=== PATIENT | male | born 1950 | race Caucasian/White ===

== ENCOUNTER 2018-01-02 09:52 | Emergency (ER) | payer OTHER ==
[~2018-01-02] VITALS: Ht 170.2 cm; Wt 99.8 kg
[~2018-01-02 09:52] MED LIST: ACET120S PR; ACET325 PT; ALBU3IS INH; ALBU90OI6; ALMASICH; ALUMAG30SU; ALUMAG30SU PT; ASPI81CH PEG; ASPI81CH PO; ASPI81CH PT; ASPI81EC PO; ATOR80 PT; BACL10 PO; BACL10 PT; CEPH500 PO; CEPH500 PT; CHOL10002 PT; CIPR500 PO; CLOP75 PO; CLOP75 PT; CVS DISPOSABLE399 ML PR; Colace100 MG PO; Crestor 20 mg tablet; Crestor20 MG PT; DOC100SO PT; DOCU100 PO; DOCU100 PT; Docusate S50 MG/5 ML PT; Doxycycline Hyc50 MG PO; FERR325 PO; Florastor250 MG PO; GAVILAX17 GM PT; GLYCAS PR; GLYCERIN1 EACH PR; Invanz1 GM IV; LACT10SY PT; LAVAP17G PO; LAVAP17G PT; LEVFLO500 PO; LEVSOD50 PO; LEVSOD75 PO; LISI5 PO; LISI5 PT; Loratadine10 MG PT; MEFOXIN IV; MEROPENEM1000 MG IV; MINE10T; MINE10T BOTHEARS; MIRALAX17 GM PT; MODA200; MODA200 PO; MODA200 PT; MULVITMIND PO; MULVITMIND PT; Macrodantin50 MG PO; Merrem1000 MG IV; Milk Of Ma400 MG/5 M PT; Miralax17 GM; Mucinex1200 MG PT; N-ACETYL-L-CYS600 MG PO; N-ACETYL-L-CYS600 MG PT; NAC600 MG PEG; NAC600 MG PT; NITR100 PT; NITR100CA PO; NITR100CA PT; NORT25; NORT25 PT; OMEG1CAP30; OMEP20ER PO; RENACIDIN IRRIG30 ML IR; ROSU10TA PO; ROSU10TA PT; SERT100 PO; SERT100 PT; SERT20L; SERTRALINE 20 MG/ML; SULTRIDS; SULTRIEL PT; Synthroid25 MCG PT; THERA M PLUS T1 EACH PO; Tylenol Su160 MG/5 M PT; Tylenol325 MG PT; VENL75ER PO; Ventolin Soln3 ML INH; ZOLOFT PT; [UNRECOGNIZED DRUG - OTHER] BOTHEARS; [UNRECOGNIZED DRUG - OTHER] PO; [UNRECOGNIZED DRUG - OTHER] TOP
[2018-01-02] MEDS ORDERED: NITR100CA PT (12:00)
[2018-09-28] MEDS ORDERED: ERTAPENEM1 GM IV (14:37)
== END 2018-01-02 12:42 | disposition home or self-care (01) ==
LOC: ER 09:52
DX: K59.00 Constipation, unspecified (principal); I10 Essential (primary) hypertension; I48.91 Unspecified atrial fibrillation; K21.9 Gastro-esophageal reflux disease without esophagitis; F32.9 Major depressive disorder, single episode, unspecified; E78.5 Hyperlipidemia, unspecified; G35 Multiple sclerosis; Z88.5 Allergy status to narcotic agent; Z79.82 Long term (current) use of aspirin; Z79.899 Other long term (current) drug therapy
CPT/HCPCS: 36415; 74018; 93005; 93010; 99283

== ENCOUNTER 2018-03-26 11:20 | Emergency (ER) | payer OTHER, MEDICARE ==
[~2018-03-26] VITALS: Ht 170.2 cm; Wt 99.8 kg
[~2018-03-26 11:20] MED LIST changes: +CHOL10002 PO; -CHOL10002 PT; +Crestor20 MG PO; -Crestor20 MG PT; +Docusate S50 MG/5 ML PO; -Docusate S50 MG/5 ML PT; +LACT10SY PO; -LACT10SY PT; -LEVSOD75 PO; +Loratadine10 MG PO; -Loratadine10 MG PT; +MIRALAX17 GM PO; -MIRALAX17 GM PT; +Mucinex1200 MG PO; -Mucinex1200 MG PT; +NORT25 PO
[2018-03-26 12:06] LABS: BASOPHILS ABSOLUTE AUTO 0.05 K/mm3 (0.00-0.23); BASOPHILS PERCENT AUTO 0 % (0-2); EOSINOPHILS PERCENT AUTO 1 % (0-6); Hematocrit 42.9 % (37.0-53.0); Hemoglobin 14.2 g/dL (13.5-17.5); IMMATURE GRAN ABSOLUTE AUTO 0.06 K/mm3 (0.00-0.10); IMMATURE GRAN PERCENT AUTO 0 % (0-1); LYMPHOCYTES ABSOLUTE AUTO 1.26 K/mm3 (0.84-5.20); LYMPHOCYTES PERCENT AUTO 8 % (21-46); MONOCYTES ABSOLUTE AUTO 1.17 K/mm3 (0.16-1.47); MONOCYTES PERCENT AUTO 8 % (4-13); Mean Corpuscular HGB 28.5 pg (26.0-34.0); Mean Corpuscular HGB Conc 33.1 g/dL (31.5-36.5); Mean Corpuscular Volume 86 fL (80-100); Mean Platelet Volume 11.1 fL (9.1-12.4); NEUTROPHILS ABSOLUTE AUTO 12.94 K/mm3 (1.96-9.15); NEUTROPHILS PERCENT AUTO 83 % (41-73); Platelet Count 235 K/mm3 (150-400); RDW Coefficient Variation 13.7 % (11.7-14.2); RDW Standard Deviation 43.2 fL (35.1-46.3); Red Blood Cell Count 4.99 M/mm3 (4.30-5.90); White Blood Cell Count 15.58 K/mm3 (4.00-11.30)
[2018-03-26 12:15] LABS: Alanine Aminotransfer (ALT/SGP 44 U/L (12-78); Albumin, Blood 3.6 g/dL (3.4-5.0); Alk Phos 69 U/L (50-136); Anion Gap 6 mmol/L (6-16); Aspartate Aminotrans (AST/SGOT 29 U/L (12-37); Bilirubin, Total 0.4 mg/dL (0.1-1.0); Blood Urea Nitrogen 12 mg/dL (8-24); Bun/Creatinine Ratio 15.4 (12.0-20.0); CO2, Blood 25 mmol/L (21-32); Calcium, Blood 8.6 mg/dL (8.5-10.1); Chloride, Blood 106 mmol/L (98-108); Creatinine, Blood 0.78 mg/dL (0.60-1.20); Globulin, Blood 3.6 g/dL (2.2-4.0); Glomerular Filtration Rate >60 (60-); Glucose, Blood 106 mg/dL (70-99); Potassium, Blood 4.5 mmol/L (3.5-5.5); Sodium, Blood 137 mmol/L (136-145); Total Protein, Blood 7.2 g/dL (6.4-8.2)
[2018-03-26 12:55] LABS: Source, Urine Catheter
[2018-03-26 13:36] LABS: Appearance, Urine Clear (Clear); Bilirubin, Urine Neg (Neg); Blood, Urine Neg (Neg); Color, Urine Yellow (P-Yellow); Glucose Qualitative, Urine Neg (Neg); Ketones, Urine Neg (Neg); Leukocyte Esterase, Urine 1+ (Neg); Nitrite, Urine Neg (Neg); Protein, Urine Neg (Neg); Specific Gravity, Urine 1.005 (1.003-1.022); Urobilinogen, Urine NORM (Normal); pH, Urine 6.5 (5.0-8.0)
[2018-03-26 14:17] LABS: Bacteria Many /hpf; Red Blood Cells, Urine 0-2 /hpf (0-2); Squamous Epithelial Cells Rare /hpf (Few)
[2018-03-26] MEDS ORDERED: Bactrim Ds Tab1 EACH PO (15:04)
[2018-03-26] MEDS ORDERED: CEFP200 PO (15:08)
== END 2018-03-26 16:32 | disposition home or self-care (01) ==
LOC: ER 11:20
PROVIDERS: Emergency Medicine
DX: N39.0 Urinary tract infection, site not specified (principal); E78.5 Hyperlipidemia, unspecified; F32.9 Major depressive disorder, single episode, unspecified; I10 Essential (primary) hypertension; I48.91 Unspecified atrial fibrillation; K21.9 Gastro-esophageal reflux disease without esophagitis; Z88.5 Allergy status to narcotic agent; Z79.899 Other long term (current) drug therapy; Z79.82 Long term (current) use of aspirin
CPT/HCPCS: 36415; 71045; 80053; 81001; 85025; 87077; 87086; 87186; 93005; 93010; 96365; 99283; J0295; J7030

== ENCOUNTER → 2018-05-09 | Outpatient (CLI) | payer SELFPAY ==
[~2018-05-09] MED LIST changes: +Bactrim Ds Tab1 EACH PO; +CEFP200 PO
[2018-05-09 12:14] LABS: Source, Urine Catheter
[2018-05-09 12:22] LABS: Appearance, Urine Hazy (Clear); Bilirubin, Urine Neg (Neg); Blood, Urine 5+ (Neg); Color, Urine Yellow (P-Yellow); Glucose Qualitative, Urine 3+ (Neg); Ketones, Urine Neg (Neg); Leukocyte Esterase, Urine 2+ (Neg); Nitrite, Urine Neg (Neg); Protein, Urine 3+ (Neg); Urobilinogen, Urine NORM (Normal)
[2018-05-09 12:41] LABS: Red Blood Cells, Urine TNTC /hpf (0-2); White Blood Cells, Urine TNTC /hpf (0-5)
[2018-05-09 12:42] LABS: Bacteria Few /hpf; Squamous Epithelial Cells Not Seen /hpf (Few)
== END | disposition home or self-care (01) ==
LOC: EDSTATUS 09:07 → LAB RH 12:13
DX: N39.0 Urinary tract infection, site not specified (principal)
CPT/HCPCS: 81001; 87077; 87086; 87186

== ENCOUNTER → 2018-07-19 | Outpatient (CLI) | payer SELFPAY | END | disposition home or self-care (01) | LOC: PLD 13:36 → LAB SHORT 13:36 | DX: D48.5 Neoplasm of uncertain behavior of skin (principal) | CPT/HCPCS: 88305 ==

== ENCOUNTER 2018-12-24 19:45 | Emergency (ER) | payer MEDICARE ==
[~2018-12-24] VITALS: Ht 170.2 cm; Wt 102.1 kg
[~2018-12-24 19:45] MED LIST changes: -CHOL10002 PO; +CHOL10002 PT; -Crestor20 MG PO; +Crestor20 MG PT; -Docusate S50 MG/5 ML PO; +Docusate S50 MG/5 ML PT; +ERTAPENEM1 GM IV; -LACT10SY PO; +LACT10SY PT; +LEVSOD75 PO; -Loratadine10 MG PO; +Loratadine10 MG PT; -MIRALAX17 GM PO; +MIRALAX17 GM PT; -Mucinex1200 MG PO; +Mucinex1200 MG PT; -NORT25 PO
[2018-12-24] MEDS ORDERED: CHOL10002 PT (19:53)
== END 2018-12-25 00:20 | disposition home or self-care (01) ==
LOC: ER 19:45
DX: Z46.59 Encounter for fitting and adjustment of other gastrointestinal appliance and device (principal); Z88.8 Allergy status to other drugs, medicaments and biological substances; Z91.018 Allergy to other foods; Z79.899 Other long term (current) drug therapy; Z79.82 Long term (current) use of aspirin; E78.5 Hyperlipidemia, unspecified; F32.9 Major depressive disorder, single episode, unspecified; I10 Essential (primary) hypertension; K21.9 Gastro-esophageal reflux disease without esophagitis; I48.91 Unspecified atrial fibrillation
CPT/HCPCS: 99282

== ENCOUNTER 2019-01-23 09:31 | Emergency (ER) | payer SELFPAY ==
[~2019-01-23] VITALS: Ht 172.7 cm; Wt 111.1 kg
[2019-01-23 09:55] LABS: Source, Urine Catheter
[2019-01-23 09:57] LABS: Bilirubin, Urine Neg (Neg); Blood, Urine 5+ (Neg); Glucose Qualitative, Urine Neg (Neg); Ketones, Urine 1+ (Neg); Leukocyte Esterase, Urine 3+ (Neg); Nitrite, Urine Pos (Neg); Protein, Urine 3+ (Neg); Specific Gravity, Urine 1.025 (1.003-1.022); Urobilinogen, Urine NORM (Normal)
[2019-01-23 10:04] LABS: BASOPHILS ABSOLUTE AUTO 0.01 K/mm3 (0.00-0.23); BASOPHILS PERCENT AUTO 0 % (0-2); EOSINOPHILS ABSOLUTE AUTO 0.01 K/mm3 (0.00-0.68); EOSINOPHILS PERCENT AUTO 0 % (0-6); Hematocrit 41.9 % (37.0-53.0); Hemoglobin 13.4 g/dL (13.5-17.5); IMMATURE GRAN ABSOLUTE AUTO 0.03 K/mm3 (0.00-0.10); IMMATURE GRAN PERCENT AUTO 0 % (0-1); LYMPHOCYTES ABSOLUTE AUTO 0.84 K/mm3 (0.84-5.20); LYMPHOCYTES PERCENT AUTO 10 % (21-46); MONOCYTES ABSOLUTE AUTO 0.76 K/mm3 (0.16-1.47); MONOCYTES PERCENT AUTO 9 % (4-13); Mean Corpuscular HGB 25.7 pg (26.0-34.0); Mean Corpuscular Volume 80 fL (80-100); Mean Platelet Volume 11.3 fL (9.1-12.4); NEUTROPHILS ABSOLUTE AUTO 6.84 K/mm3 (1.96-9.15); NEUTROPHILS PERCENT AUTO 81 % (41-73); Platelet Count 166 K/mm3 (150-400); RDW Coefficient Variation 16.9 % (11.7-14.2); Red Blood Cell Count 5.22 M/mm3 (4.30-5.90); White Blood Cell Count 8.49 K/mm3 (4.00-11.30)
[2019-01-23 10:06] LABS: Appearance, Urine Hazy (Clear); Bacteria Few /hpf; Color, Urine Yellow (P-Yellow); Red Blood Cells, Urine 25-50 /hpf (0-2); Squamous Epithelial Cells Few /hpf (Few); White Blood Cells, Urine 50-100 /hpf (0-5)
[2019-01-23 10:28] LABS: Alanine Aminotransfer (ALT/SGP 35 U/L (12-78); Albumin, Blood 3.6 g/dL (3.4-5.0); Alk Phos 58 U/L (50-136); Anion Gap 9 mmol/L (6-16); Aspartate Aminotrans (AST/SGOT 20 U/L (12-37); Bilirubin, Total 0.5 mg/dL (0.1-1.0); Blood Urea Nitrogen 16 mg/dL (8-24); Bun/Creatinine Ratio 20.7 (12.0-20.0); CO2, Blood 22 mmol/L (21-32); Calcium, Blood 8.3 mg/dL (8.5-10.1); Chloride, Blood 103 mmol/L (98-108); Creatinine, Blood 0.77 mg/dL (0.60-1.20); Globulin, Blood 3.7 g/dL (2.2-4.0); Glomerular Filtration Rate >60 (60-); Glucose, Blood 137 mg/dL (70-99); Sodium, Blood 134 mmol/L (136-145); Total Protein, Blood 7.3 g/dL (6.4-8.2)
[2019-01-23] MEDS ORDERED: LEVFLO500 PT (11:18)
== END 2019-01-23 12:33 | disposition home or self-care (01) ==
LOC: ER 09:31
PROVIDERS: Emergency Medicine
DX: N39.0 Urinary tract infection, site not specified (principal); E78.5 Hyperlipidemia, unspecified; F32.9 Major depressive disorder, single episode, unspecified; I10 Essential (primary) hypertension; I48.91 Unspecified atrial fibrillation; K21.9 Gastro-esophageal reflux disease without esophagitis; Z91.018 Allergy to other foods; Z88.5 Allergy status to narcotic agent; Z88.8 Allergy status to other drugs, medicaments and biological substances; Z79.899 Other long term (current) drug therapy; Z79.82 Long term (current) use of aspirin
CPT/HCPCS: 36415; 71046; 80053; 81001; 83605; 85025; 87086; 93005; 93010; 96361; 96365; 99284-25; J1956; J7120

== ENCOUNTER → 2019-06-26 | Outpatient (CLI) | payer SELFPAY ==
[~2019-06-26] MED LIST changes: +LEVFLO500 PT
[2019-06-26 12:06] LABS: Hematocrit 44.9 % (37.0-53.0); Hemoglobin 14.1 g/dL (13.5-17.5); Mean Corpuscular HGB 26.6 pg (26.0-34.0); Mean Corpuscular HGB Conc 31.4 g/dL (31.5-36.5); Mean Corpuscular Volume 85 fL (80-100); Mean Platelet Volume 11.3 fL (9.1-12.4); Platelet Count 249 K/mm3 (150-400); RDW Coefficient Variation 15.9 % (11.7-14.2); RDW Standard Deviation 48.8 fL (35.1-46.3); Red Blood Cell Count 5.31 M/mm3 (4.30-5.90); White Blood Cell Count 16.14 K/mm3 (4.00-11.30)
[2019-06-26 12:07] LABS: Bilirubin, Urine Neg (Neg); Blood, Urine 5+ (Neg); Glucose Qualitative, Urine Neg (Neg); Ketones, Urine 1+ (Neg); Leukocyte Esterase, Urine 3+ (Neg); Nitrite, Urine Pos (Neg); Protein, Urine 3+ (Neg); Specific Gravity, Urine 1.015 (1.003-1.022); Urobilinogen, Urine NORM (Normal); pH, Urine 6.5 (5.0-8.0)
[2019-06-26 12:14] LABS: Appearance, Urine Hazy (Clear); Color, Urine Yellow (P-Yellow)
[2019-06-26 12:16] LABS: Red Blood Cells, Urine TNTC /hpf (0-2); Transitional Epithelial Cells Few /hpf (0-Rare); White Blood Cells, Urine 50-100 /hpf (0-5)
[2019-06-26 12:17] LABS: Bacteria Few /hpf; Squamous Epithelial Cells Few /hpf (Few)
[2019-06-26 12:24] LABS: Alanine Aminotransfer (ALT/SGP 39 U/L (12-78); Albumin, Blood 3.9 g/dL (3.4-5.0); Albumin/Globulin Ratio 1.1 (0.8-1.8); Alk Phos 68 U/L (50-136); Anion Gap 4 mmol/L (6-16); Aspartate Aminotrans (AST/SGOT 21 U/L (12-37); Bilirubin, Total 0.5 mg/dL (0.1-1.0); Blood Urea Nitrogen 14 mg/dL (8-24); CO2, Blood 29 mmol/L (21-32); Calcium, Blood 9.3 mg/dL (8.5-10.1); Chloride, Blood 102 mmol/L (98-108); Creatinine, Blood 0.88 mg/dL (0.60-1.20); Globulin, Blood 3.7 g/dL (2.2-4.0); Glomerular Filtration Rate >60 (60-); Glucose, Blood 142 mg/dL (70-99); Potassium, Blood 4.3 mmol/L (3.5-5.5); Sodium, Blood 135 mmol/L (136-145); Total Protein, Blood 7.6 g/dL (6.4-8.2)
== END | disposition home or self-care (01) ==
LOC: EDSTATUS 11:46 → LAB RH 11:55
DX: N39.0 Urinary tract infection, site not specified (principal); I10 Essential (primary) hypertension
CPT/HCPCS: 80053; 81001; 85027; 87077; 87086; 87186

== ENCOUNTER → 2019-07-14 | Outpatient (CLI) | payer SELFPAY ==
[2019-07-14 16:55] LABS: Bilirubin, Urine Neg (Neg); Blood, Urine 5+ (Neg); Glucose Qualitative, Urine Neg (Neg); Ketones, Urine Neg (Neg); Leukocyte Esterase, Urine 2+ (Neg); Nitrite, Urine Neg (Neg); Protein, Urine 3+ (Neg); Urobilinogen, Urine 1+ (Normal)
[2019-07-14 17:01] LABS: Appearance, Urine Cloudy (Clear); Color, Urine Red (P-Yellow)
[2019-07-14 17:04] LABS: Amorphous Mod (0-Heavy); Bacteria Mod /hpf; Red Blood Cells, Urine TNTC /hpf (0-2); Squamous Epithelial Cells Rare /hpf (Few)
== END | disposition home or self-care (01) ==
LOC: EDSTATUS 13:38 → LAB RH 16:05
DX: N39.0 Urinary tract infection, site not specified (principal)
CPT/HCPCS: 81001; 87077; 87086; 87186

== ENCOUNTER 2019-10-04 05:35 | Emergency (ER) | payer OTHER ==
[~2019-10-04] VITALS: Ht 170.2 cm; Wt 102.1 kg
[~2019-10-04 05:35] MED LIST changes: +Keflex500 MG PO; +METF500 PO; +VITAMIN D33000 UNI1 PO
[2019-10-25] MEDS ORDERED: MILK OF MA400 MG/5 M PO (13:41)
[2019-10-25] MEDS ORDERED: CLOBET30L TOP (13:41)
[2019-10-25] MEDS ORDERED: ROSU10TA PO (13:42)
[2019-10-25] MEDS ORDERED: RENACIDIN IRRIG30 ML IR (13:42)
== END 2019-10-04 11:02 | disposition home or self-care (01) ==
LOC: ER 05:35
DX: K94.23 Gastrostomy malfunction (principal); I10 Essential (primary) hypertension; E78.5 Hyperlipidemia, unspecified; K21.9 Gastro-esophageal reflux disease without esophagitis; I48.91 Unspecified atrial fibrillation; F32.9 Major depressive disorder, single episode, unspecified; G35 Multiple sclerosis; Z91.018 Allergy to other foods; Z88.5 Allergy status to narcotic agent; Z79.899 Other long term (current) drug therapy; Z79.82 Long term (current) use of aspirin; Z79.84 Long term (current) use of oral hypoglycemic drugs
CPT/HCPCS: 43761; 49465; 99283-25; Q9963

== ENCOUNTER → 2020-01-16 | Outpatient (CLI) | payer SELFPAY ==
[~2020-01-16] MED LIST changes: +CLOBET30L TOP; +MILK OF MA400 MG/5 M PO
== END | disposition home or self-care (01) ==
LOC: LAB RH 08:02 → EDSTATUS 14:01
DX: E11.9 Type 2 diabetes mellitus without complications (principal)
CPT/HCPCS: 36415; 83036

== ENCOUNTER 2021-03-15 04:17 | Inpatient (IN) | payer OTHER, MEDICARE ==
[~2021-03-15] VITALS: Ht 172.7 cm; Wt 94.0 kg
[~2021-03-15 04:17] MED LIST changes: +ATOR40TA PO; +LINZESS145 MCG PO
[2021-03-15 04:40] LABS: PCO2 Arterial 35.9 mmHg (35-45); PO2 Arterial 126 mmHg (80-100); pH Blood Arterial 7.42 (7.35-7.45)
[2021-03-15 04:45] LABS: Calcium, Ionized (POC) 1.16 mmol/L (1.10-1.46); Chloride (POC) 103 mmol/L (98-108); Glucose (ISTAT POC) 158 mg/dL (70-99); Hemoglobin (POC) 16.7 g/dL (13.5-17.5); Potassium (POC) 4.9 mmol/L (3.5-5.5); Sodium (POC) 138 mmol/L (135-148); Total CO2 (POC) 25 mmol/L (21-32)
[2021-03-15 04:53] LABS: BASOPHILS ABSOLUTE AUTO 0.06 K/mm3 (0.00-0.23); BASOPHILS PERCENT AUTO 0 % (0-2); EOSINOPHILS ABSOLUTE AUTO 0.02 K/mm3 (0.00-0.68); EOSINOPHILS PERCENT AUTO 0 % (0-6); Hematocrit 49.2 % (37.0-53.0); Hemoglobin 16.6 g/dL (13.5-17.5); IMMATURE GRAN ABSOLUTE AUTO 0.03 K/mm3 (0.00-0.10); IMMATURE GRAN PERCENT AUTO 0 % (0-1); LYMPHOCYTES ABSOLUTE AUTO 1.25 K/mm3 (0.84-5.20); LYMPHOCYTES PERCENT AUTO 8 % (21-46); MONOCYTES ABSOLUTE AUTO 1.14 K/mm3 (0.16-1.47); MONOCYTES PERCENT AUTO 8 % (4-13); Mean Corpuscular HGB 29.8 pg (26.0-34.0); Mean Corpuscular HGB Conc 33.7 g/dL (31.5-36.5); Mean Corpuscular Volume 88 fL (80-100); Mean Platelet Volume 10.9 fL (9.1-12.4); NEUTROPHILS ABSOLUTE AUTO 12.57 K/mm3 (1.96-9.15); NEUTROPHILS PERCENT AUTO 83 % (41-73); Platelet Count 299 K/mm3 (150-400); RDW Coefficient Variation 13.3 % (11.7-14.2); RDW Standard Deviation 43.4 fL (35.1-46.3); Red Blood Cell Count 5.57 M/mm3 (4.30-5.90); White Blood Cell Count 15.07 K/mm3 (4.00-11.30)
[2021-03-15 05:13] LABS: Alanine Aminotransfer (ALT/SGP 39 U/L (12-78); Albumin, Blood 3.9 g/dL (3.4-5.0); Albumin/Globulin Ratio 1.1 (0.8-1.8); Alk Phos 77 U/L (50-136); Anion Gap 8 mmol/L (6-16); Aspartate Aminotrans (AST/SGOT 20 U/L (12-37); Blood Urea Nitrogen 19 mg/dL (8-24); Bun/Creatinine Ratio 18.1 (12.0-20.0); CO2, Blood 23 mmol/L (21-32); Calcium, Blood 9.3 mg/dL (8.5-10.1); Chloride, Blood 104 mmol/L (98-108); Creatinine, Blood 1.05 mg/dL (0.60-1.20); Globulin, Blood 3.4 g/dL (2.2-4.0); Glomerular Filtration Rate >60 (60-); Glucose, Blood 150 mg/dL (70-99); Potassium, Blood 4.8 mmol/L (3.5-5.5); Sodium, Blood 135 mmol/L (136-145); Total Protein, Blood 7.3 g/dL (6.4-8.2); Troponin I <0.015 ng/mL (0.000-0.040)
[2021-03-15 05:55] LABS: Source, Urine Catheter
[2021-03-15 05:58] LABS: Blood, Urine 5+ (Neg); Glucose Qualitative, Urine Neg (Neg); Ketones, Urine 1+ (Neg); Leukocyte Esterase, Urine 3+ (Neg); Nitrite, Urine Pos (Neg); Protein, Urine 4+ (Neg); Specific Gravity, Urine 1.025 (1.003-1.022); Urobilinogen, Urine 1+ (Normal)
[2021-03-15 06:09] LABS: Appearance, Urine Cloudy (Clear); Bilirubin, Urine 1+ (Neg); Color, Urine Yellow (P-Yellow)
[2021-03-15 06:11] LABS: Bacteria Many /hpf; Red Blood Cells, Urine TNTC /hpf (0-2); Squamous Epithelial Cells Few /hpf (Few)
[2021-03-15] MEDS ORDERED: SERT100 PO (07:14)
--- NOTE | 2021-03-15 14:31 | NUR ---
ASSUMED CARE + UPDATE ASSUMED CARE OF PT AT 0908 HE ARRIVED VIA STRETCHER FROM ER. HE WAS (IS) ALERT AND ORIENTED X 4, BUT IS SLOW TO RESPOND AND HAS SOME DIFFICULTY SPEAKING (PER HIS DAUGHTER/POA THIS IS HIS BASELINE HE HAS MS AND THIS IS ONE OF HIS ISSUES). PT IS ABLE TO MAKE NEEDS KNOWN, HE DENIES PAIN, BUT HAS EXPRESSED THAT HE IS HUNGRY. NS AT 75 ML/HR WAS STARTED ON ARRIVAL TO UNIT. HE HAS A SUPRA-PUBIC CATHETER THAT WAS REPLACED IN THE ER, DRAINING YELLOW URINE WITH MINISCULE SEDIMENT, FAIRLY CLEAR OTHERWISE. LACTIC ACID TRENDING IN THE RIGHT DIRECTION. BEHAVIOR/NEURO APPEARS TO BE AT BASELINE, PER DAUGHTER POA, AND JOE FROM [facility] (HIS NURSE). SOMETHING THAT APPEARS TO HAVE STARTED RECENTLY (IN LAST 12-24 HOURS) PT WILL OCCASSIONALLY HOLD HIS BREATH FOR A SHORT PERIOD OF TIME, AND THEN GASPS TRYING TO CATCH HIS BREATH. WHEN REMINDED TO BREATHE - HE WILL, BUT WHEN HES NOT REMINDED HE EVENTUALLY STARTS GASPING/BREATHING. HIS SPO2 HAS BEEN MAINTAINED IN THE 94-100% RANGE - ON ROOM AIR (ARRIVED ON 5L OXYMIZER). SEEMS TO BE DECREASING IN FREQUENCY THIS AFTERNOON, BUT STILL OCCURS. FOOD- PT PLACED ON PUREE DIET, HE IS ABLE TO FEED HIMSELF, CURRENTLY HE IS SITTING UP AT 90 DEGREES IN THE BED (IN 'CHAIR MODE'). PT IS TOLERATING THIS WELL, NO OVERT SIGNS OF ASPIRATION NOTED. AVOIDING STRAWS FOR TIME BEING. WILL CONTINUE TO MONITOR. 90 DEGREES,
[2021-03-16 03:45] LABS: BASOPHILS ABSOLUTE AUTO 0.02 K/mm3 (0.00-0.23); BASOPHILS PERCENT AUTO 0 % (0-2); EOSINOPHILS ABSOLUTE AUTO 0.13 K/mm3 (0.00-0.68); EOSINOPHILS PERCENT AUTO 3 % (0-6); Hematocrit 41.3 % (37.0-53.0); Hemoglobin 13.9 g/dL (13.5-17.5); IMMATURE GRAN ABSOLUTE AUTO 0.01 K/mm3 (0.00-0.10); IMMATURE GRAN PERCENT AUTO 0 % (0-1); LYMPHOCYTES ABSOLUTE AUTO 1.43 K/mm3 (0.84-5.20); LYMPHOCYTES PERCENT AUTO 27 % (21-46); MONOCYTES ABSOLUTE AUTO 0.43 K/mm3 (0.16-1.47); MONOCYTES PERCENT AUTO 8 % (4-13); Mean Corpuscular HGB 29.8 pg (26.0-34.0); Mean Corpuscular HGB Conc 33.7 g/dL (31.5-36.5); Mean Corpuscular Volume 88 fL (80-100); Mean Platelet Volume 10.8 fL (9.1-12.4); NEUTROPHILS ABSOLUTE AUTO 3.25 K/mm3 (1.96-9.15); NEUTROPHILS PERCENT AUTO 62 % (41-73); Platelet Count 165 K/mm3 (150-400); RDW Coefficient Variation 13.4 % (11.7-14.2); RDW Standard Deviation 43.5 fL (35.1-46.3); Red Blood Cell Count 4.67 M/mm3 (4.30-5.90); White Blood Cell Count 5.27 K/mm3 (4.00-11.30)
[2021-03-16 04:14] LABS: Alanine Aminotransfer (ALT/SGP 31 U/L (12-78); Albumin, Blood 3.3 g/dL (3.4-5.0); Albumin/Globulin Ratio 1.2 (0.8-1.8); Alk Phos 62 U/L (50-136); Anion Gap 4 mmol/L (6-16); Aspartate Aminotrans (AST/SGOT 15 U/L (12-37); Bilirubin, Total 1.1 mg/dL (0.1-1.0); Blood Urea Nitrogen 15 mg/dL (8-24); Bun/Creatinine Ratio 18.3 (12.0-20.0); CO2, Blood 26 mmol/L (21-32); Calcium, Blood 8.3 mg/dL (8.5-10.1); Chloride, Blood 106 mmol/L (98-108); Creatinine, Blood 0.82 mg/dL (0.60-1.20); Globulin, Blood 2.7 g/dL (2.2-4.0); Glomerular Filtration Rate >60 (60-); Glucose, Blood 112 mg/dL (70-99); Potassium, Blood 3.7 mmol/L (3.5-5.5); Sodium, Blood 136 mmol/L (136-145)
--- NOTE | 2021-03-16 05:02 | NUR ---
PRIZER HAND SUMMARY PT AXO X 3-4 ALL SHIFT. PT MAINTAINED O2 SATS >92% ON RM AIR W NO EPSIODE OF APNEA. PT HAD 500ML URINE OUTPUT THIS SHIFT. PT DENIED ANY PAIN OR NAUSEA THIS SHIFT. PT DID ATTEMPT TO HAVE A BM X2 THIS SHIFT W NO SUCCESS. PT BOOSTED AND REPOSITIONED THROUGHOUT THE SHIFT. PT HAS OCCASSIONAL HACKING COUGH BUT HAS NOT BEEN ABLE TO PRODUCE A SPUTUM SAMPLE THIS SHIFT. PT HAS REMAINED AFEBRILE THIS SHIFT. VSS, WCTM.
--- NOTE | 2021-03-16 18:36 | NUR ---
SHIFT SUMMARY PT ALERT AND ORIENTED x 2 AND HARD OF HEARING. FOLLOWS COMMANDS GENERALIZED WEAKNESS, WORSE IN LOWER EXTREMETIES, BASELINE PER REPORT FROM FAMILY. SUPRA PUBIC CATH TO GRAVITY DRAINAGE, YELLOW CLOUDY URINE. PT INITIALLY WASN'T INTERESTED IN BREAKFAST, BUT DID EAT MORE LUNCH AND ALL OF DINNER. INITIALLY PT WAS ON 4L OF O2 VIA OXYMIZER, WEANED TO 2L, THEN ROOM AIR. PT WOULD HAVE MOMENTS WHERE HE APPEARED TO BE HOLDING HIS BREATH, WHICH CAUSED HIS SPO2 TO DROP INTO THE 70'S, WHEN PT INSTRUCTED TO TAKE A BREATH, HIS SPO2 WOULD IMMEDIATELY INCREASE BACK TO MID 90'S. PT WOULD ALSO HOLD BREATH WHEN BEING TURNED IN BED AND WOULD REQUIRE REMINDING TO TAKE BREATHS THE TURN WAS HAPPENING. OTHER VITALS HAVE REMAINED STABLE, SINUS RHYTHM ON THE MONITOR. TRANSFER OF CARE REPORT GIVEN TO VIVEK ON MEDICAL FLOOR. PT TO TRANSFER TO ROOM 354.
--- NOTE | 2021-03-17 04:13 | NUR ---
SHIFT SUMMARY ASSUMED CARE OF PT AT 1900. PT IS A/OX4. HEART SOUNDS REGULAR, TELE SHOWS SINUS @ 68. LUNG SOUNDS DIMINISHED. PT HAS SUPRAPUBIC CATH, DRAINING A SMALL AMOUNT OF URINE, ABOUT 300ML T/O THE NIGHT. PT LIMBS ARE DISCLORED BUT SENSATION IN TACT. PT HAS GROSS MOTOR MOVEMENT. AND CAN HOLD A CUP OF WATER. PT LAB TESTED POSITIVE A SECOND TIME FOR GRAM POSITIVE COCCI IN CLUSTERS, PHARMACY SAID PT SHOULD BE STARTED ON VANCO, HOSPITALIST NOTIFIED AND AGREED TO TREATMENT. CALL LIGHT IN REACH, BED IN LOWEST POSTION.
--- NOTE | 2021-03-17 18:37 | NUR ---
SHIFT SUMMARY PT HAS HAD A GOOD APPETITE WITH ASSISTANCE EATING. NO COMPLAINTS OF PAIN OR SHORTNESS OF BREATH. PT SLEPT A LOT OF THE SHIFT. SUPRA PUBIC CATHETER PATENT AND DRAINING LIGHT YELLOW URINE. NO ACUTE CHANGES THIS SHIFT. CALL LIGHT IN REACH. WILL CONTINUE TO MONITOR AND REPORT TO ONCOMING RN.
[2021-03-17 23:57] LABS: Vancomycin, Trough 15.6 ug/mL (5.0-10.0)
[2021-03-18 05:12] LABS: BASOPHILS ABSOLUTE AUTO 0.03 K/mm3 (0.00-0.23); BASOPHILS PERCENT AUTO 1 % (0-2); EOSINOPHILS ABSOLUTE AUTO 0.22 K/mm3 (0.00-0.68); EOSINOPHILS PERCENT AUTO 4 % (0-6); Hematocrit 43.2 % (37.0-53.0); Hemoglobin 14.8 g/dL (13.5-17.5); IMMATURE GRAN ABSOLUTE AUTO 0.01 K/mm3 (0.00-0.10); IMMATURE GRAN PERCENT AUTO 0 % (0-1); LYMPHOCYTES ABSOLUTE AUTO 1.28 K/mm3 (0.84-5.20); LYMPHOCYTES PERCENT AUTO 25 % (21-46); MONOCYTES ABSOLUTE AUTO 0.37 K/mm3 (0.16-1.47); MONOCYTES PERCENT AUTO 7 % (4-13); Mean Corpuscular HGB 30.3 pg (26.0-34.0); Mean Corpuscular HGB Conc 34.3 g/dL (31.5-36.5); Mean Corpuscular Volume 88 fL (80-100); Mean Platelet Volume 10.9 fL (9.1-12.4); NEUTROPHILS ABSOLUTE AUTO 3.29 K/mm3 (1.96-9.15); NEUTROPHILS PERCENT AUTO 63 % (41-73); Platelet Count 192 K/mm3 (150-400); RDW Coefficient Variation 13.1 % (11.7-14.2); RDW Standard Deviation 42.5 fL (35.1-46.3); Red Blood Cell Count 4.89 M/mm3 (4.30-5.90)
--- NOTE | 2021-03-18 05:30 | NUR ---
FAUSTO WAS ALERT AND COOPERATIVE WITH CARE OVERNIGHT. CALLED APPROPRIATELY FOR BEDPAN, (ONLY WAS ABLE TO PASS GAS). PATIENT UNSURE WHEN HIS LAST BOWEL MOVEMENT WAS. LOOKS IN CHART IF IT WAS THE 2ND. STATED BLADDER AREA FELT VERY BLOATED AND UNCOMFORTABLE. SCAN SHOWED THERE WAS <2ML. FEET REMAIN PURPLE IN COLOR AND COOD. FAINTLY PALPABLE DORSALIS PULSES NOTED.
[2021-03-18 05:44] LABS: Anion Gap 5 mmol/L (6-16); Blood Urea Nitrogen 12 mg/dL (8-24); Bun/Creatinine Ratio 16.8 (12.0-20.0); CO2, Blood 28 mmol/L (21-32); Calcium, Blood 8.6 mg/dL (8.5-10.1); Chloride, Blood 104 mmol/L (98-108); Creatinine, Blood 0.71 mg/dL (0.60-1.20); Glomerular Filtration Rate >60 (60-); Glucose, Blood 115 mg/dL (70-99); Potassium, Blood 3.7 mmol/L (3.5-5.5); Sodium, Blood 137 mmol/L (136-145)
--- NOTE | 2021-03-18 17:13 | NUR ---
ALERT. ORIENTED. UNLABORED RESPIRATIONS. AK CHIN. SPEECH LITTLE GARBLED. PLEASANT. COOPERATIVE. MEDS FOR CONSTIPATION GIVEN. MEPILEX TO BOTTOM FOR REDNESS. NO ACUTE CHANGES. WCTM
--- NOTE | 2021-03-18 19:00 | NUR ---
ASSUMED CARE RECEIVED REPORT FROM GARETT Hoover RN. PT RESTING, IN NO ACUTE DISTRESS, RESPS E/U. DENIES PAIN OR NEEDS AT THIS TIME. CALL LIGHT IN REACH.
[2021-03-19 05:29] LABS: Vancomycin, Trough 14.1 ug/mL (5.0-10.0)
--- NOTE | 2021-03-19 05:42 | NUR ---
ROLLER PNEUMATIC SUMMARY PT RESTING, IN NO ACUTE DISTRESS. VS REVIEWED,WNL. SLEPT T/O MUCH OF THE NIGHT. NO ACUTE CHANGES IN CONDITION NOTED. S/P CATHETER INTACT, DRSG CHANGED TO SITE, SKIN SURROUNDING STOMA C/D/I. CATHETER DRAINING JANEE YELLOW URINE TO GRAVITY. NO BM'S OF NOW, SCHEDULED BOWEL CARE GIVEN. PT DENIES PAIN/DISCOMFORT. DENIES NEEDS AT THIS TIME. CALL LIGHT, POSSESSIONS IN REACH. BED IN LOW POSITION. WILL CONTINUE TO PROVIDE CARE UNTIL REPORT GIVEN TO ONCOMING RN.
--- NOTE | 2021-03-19 14:38 | NUR ---
PER DAUGHTER, SKYLER, PATIENT CAN FEED HIMSELF AND DOES NOT NEED PUREE FOOD. PATIENT STS DOES NOT CARE IF HE HAS PUREED OR NOT. DAUGHTER STS HE HAS FOOD CHOPPED VERY SMALL AT [facility] AND DOES FINE. RELATIVE BROUGHT IN JERKY CHOPPED INTO ABOUT 1/2 INCH SQUARES FOR PATIENT AND STS SHE CAN SIGN A WAIVER FOR HIM TO HAVE.
--- NOTE | 2021-03-19 19:05 | NUR ---
ASSUMED CARE RECEIVED REPORT FROM PIETRO CHEUNG. PT RESTING, IN NO ACUTE DISTRESS. RESPS E/U. NO ACUTE NEEDS ASSESSED AT THIS TIME. CALL LIGHT IN REACH.
[2021-03-20 04:48] LABS: BASOPHILS ABSOLUTE AUTO 0.05 K/mm3 (0.00-0.23); BASOPHILS PERCENT AUTO 1 % (0-2); EOSINOPHILS ABSOLUTE AUTO 0.24 K/mm3 (0.00-0.68); EOSINOPHILS PERCENT AUTO 4 % (0-6); Hematocrit 46.4 % (37.0-53.0); Hemoglobin 15.6 g/dL (13.5-17.5); IMMATURE GRAN ABSOLUTE AUTO 0.03 K/mm3 (0.00-0.10); IMMATURE GRAN PERCENT AUTO 1 % (0-1); LYMPHOCYTES ABSOLUTE AUTO 1.35 K/mm3 (0.84-5.20); LYMPHOCYTES PERCENT AUTO 21 % (21-46); MONOCYTES ABSOLUTE AUTO 0.48 K/mm3 (0.16-1.47); MONOCYTES PERCENT AUTO 7 % (4-13); Mean Corpuscular HGB 29.6 pg (26.0-34.0); Mean Corpuscular HGB Conc 33.6 g/dL (31.5-36.5); Mean Corpuscular Volume 88 fL (80-100); Mean Platelet Volume 10.8 fL (9.1-12.4); NEUTROPHILS ABSOLUTE AUTO 4.36 K/mm3 (1.96-9.15); NEUTROPHILS PERCENT AUTO 67 % (41-73); Platelet Count 198 K/mm3 (150-400); RDW Coefficient Variation 13.2 % (11.7-14.2); RDW Standard Deviation 42.6 fL (35.1-46.3); Red Blood Cell Count 5.27 M/mm3 (4.30-5.90); White Blood Cell Count 6.51 K/mm3 (4.00-11.30)
[2021-03-20 05:04] LABS: Anion Gap 4 mmol/L (6-16); Blood Urea Nitrogen 11 mg/dL (8-24); Bun/Creatinine Ratio 14.8 (12.0-20.0); CO2, Blood 27 mmol/L (21-32); Calcium, Blood 8.7 mg/dL (8.5-10.1); Chloride, Blood 104 mmol/L (98-108); Creatinine, Blood 0.74 mg/dL (0.60-1.20); Glomerular Filtration Rate >60 (60-); Glucose, Blood 114 mg/dL (70-99); Potassium, Blood 4.2 mmol/L (3.5-5.5); Sodium, Blood 135 mmol/L (136-145)
--- NOTE | 2021-03-20 06:07 | NUR ---
PATIENT REGISTRATION REPRESENTATIVE SUMMARY PT ASLEEP, IN NO ACUTE DISTRESS. VS REVIEWED,WNL. SLEEP STUDY PERFORMED PER RT, PT TOLERATED WELL. AWAITING RESULTS. NO ACUTE CHANGES IN CONDITION OVERNIGHT, NO BM'S OF YET. SLEPT T/O NIGHT. NO ACUTE NEEDS ASSESSED AT THIS TIME. CALL LIGHT, POSSESSIONS IN REACH, BED IN LOW POSITION. WILL CONTINUE TO PROVIDE CARE NEEDED UNTIL REPORT GIVEN TO DAY RN.
--- NOTE | 2021-03-20 09:58 | NUR ---
MED CLARIFICATION THIS RN SPOKE WITH DR. HOFFMANN ABOUT PTS ORDER FOR RENACIDIN IRRIGATION. DR. HOFFMANN ORDERED THAT IT WAS OK TO RESTART HOME DOSE OF 30ML RATHER THAN THE CURRENT 100ML. STEEN TO BE CLAMPED FOR 30-60 MINUTES AFTER INFUSED.
[2021-03-20] MEDS ORDERED: SENN187 PO (11:07)
[2021-03-20] MEDS ORDERED: VANCOMYCIN HCL750 MG IV (11:08)
[2021-03-20 12:26] LABS: Influenza A, PCR NEGATIVE (NEGATIVE); Influenza B, PCR NEGATIVE (NEGATIVE); Resp Syncytial Virus, PCR NEGATIVE (NEGATIVE)
[2021-03-20 12:35] LABS: SARS-Cov-2 (COVID-19) PCR, MMC POSITIVE (NEGATIVE)
--- NOTE | 2021-03-20 12:51 | NUR ---
COVID+ TEST RESULT PT TESTED POSITIVE FOR COVID THIS STAY. DR. HOFFMANN & CARE MANAGEMENT NOTIFIED. TODD AGUILAR CONFIRMED THAT PT HAD COVID IN OF THIS YEAR. SO PT IS RECOVERED. CURRENTLY HAS NO SYMPTOMS. PLANNED TO STILL DC LATER TODAY BACK TO [facility].
--- NOTE | 2021-03-20 17:00 | NUR ---
BLEACH MIXER NOTE SPOKE TO DONTA FROST RN AND GAVE REPORT. MARGOT STATES NO FURTHER QUESTIONS AT THIS TIME.
--- NOTE | 2021-03-20 18:13 | NUR ---
THIS RN ASSESSED THE PT. THIS RN REVIEWED & AGREES WITH COMMERCIAL SALES SPECIALIST DOCUMENTATION THIS SHIFT.
--- NOTE | 2021-03-20 18:54 | NUR ---
SHIFT SUMMARY PATIENT ALERT AND ORIENTATED X2. PT HARD OF HEARING. PT HAS HAD NO COMPLAINTS OF PAIN AND SHORTNESS AND BREATH. PT SLEPT ON AND OFF SHIFT. PATIENT HAD A BOWEL MOVEMENT TODAY. NO ACUTE CHANGED DURING SHIFT. CALL LIGHT IN REACH. VITAL SIGNS REVIEWED. PENDING DISCHARGE TO [facility] DURING ATTENDANT SALES.
== END 2021-03-20 19:26 | DRG 871 ==
LOC: ER 04:17 → ICUW 06:09 → ERHOLD 06:09 → ICUW 09:04 → MEDS 03-16 18:54 → EDPENDDIS 03-20 10:50 → ENPENDDIS 03-20 10:50 → MEDS 03-20 19:26
PROVIDERS: Emergency Medicine; Internal Medicine; ADMIT Internal Medicine
PROC: 02HV33Z Insertion of Infusion Device into Superior Vena Cava, Percutaneous Approach (ICD-10-PCS; principal; 2021-03-20)
DX: A41.1 Sepsis due to other specified staphylococcus (principal); G92 Toxic encephalopathy; G35 Multiple sclerosis; K21.9 Gastro-esophageal reflux disease without esophagitis; F32.9 Major depressive disorder, single episode, unspecified; Z66 Do not resuscitate; I48.91 Unspecified atrial fibrillation; E86.0 Dehydration; M19.90 Unspecified osteoarthritis, unspecified site; Z20.822 Contact with and (suspected) exposure to COVID-19; R33.8 Other retention of urine; E03.9 Hypothyroidism, unspecified; G47.419 Narcolepsy without cataplexy; I73.9 Peripheral vascular disease, unspecified; I10 Essential (primary) hypertension; R65.20 Severe sepsis without septic shock; K59.09 Other constipation; E78.5 Hyperlipidemia, unspecified; Z88.5 Allergy status to narcotic agent; Z91.018 Allergy to other foods; Z98.890 Other specified postprocedural states; Z79.82 Long term (current) use of aspirin; Z79.899 Other long term (current) drug therapy; Z79.84 Long term (current) use of oral hypoglycemic drugs; Z74.01 Bed confinement status; Z93.1 Gastrostomy status
CPT/HCPCS: 0241U; 36415; 36569; 36600; 51705; 71045; 74176; 80047; 80048; 80053; 80202; 81001; 82803; 83605; 83880; 84484; 85014; 85025; 85651; 87040; 87077; 87086; 87186; 93005; 93010; 93306; 94760; 94762; 96365-59; 96366-59; 96375-59; 99285-25; A9270; C1751; C2627; J0330; J1650; J1956; J2185; J3370; J7030; J7050

== ENCOUNTER 2021-07-07 07:55 | Emergency (ER) | payer OTHER ==
[~2021-07-07] VITALS: Ht 170.2 cm; Wt 81.7 kg
[~2021-07-07 07:55] MED LIST changes: +SENN187 PO; +VANCOMYCIN HCL750 MG IV
[2021-07-07 09:14] LABS: BASOPHILS ABSOLUTE AUTO 0.02 K/mm3 (0.00-0.23); BASOPHILS PERCENT AUTO 0 % (0-2); EOSINOPHILS ABSOLUTE AUTO 0.02 K/mm3 (0.00-0.68); EOSINOPHILS PERCENT AUTO 0 % (0-6); Hematocrit 45.6 % (37.0-53.0); Hemoglobin 15.6 g/dL (13.5-17.5); IMMATURE GRAN ABSOLUTE AUTO 0.02 K/mm3 (0.00-0.10); IMMATURE GRAN PERCENT AUTO 0 % (0-1); LYMPHOCYTES ABSOLUTE AUTO 0.93 K/mm3 (0.84-5.20); LYMPHOCYTES PERCENT AUTO 11 % (21-46); MONOCYTES ABSOLUTE AUTO 0.82 K/mm3 (0.16-1.47); MONOCYTES PERCENT AUTO 10 % (4-13); Mean Corpuscular HGB 29.9 pg (26.0-34.0); Mean Corpuscular HGB Conc 34.2 g/dL (31.5-36.5); Mean Corpuscular Volume 88 fL (80-100); Mean Platelet Volume 10.7 fL (9.1-12.4); NEUTROPHILS ABSOLUTE AUTO 6.33 K/mm3 (1.96-9.15); NEUTROPHILS PERCENT AUTO 78 % (41-73); Platelet Count 203 K/mm3 (150-400); RDW Coefficient Variation 13.2 % (11.7-14.2); RDW Standard Deviation 43.3 fL (35.1-46.3); Red Blood Cell Count 5.21 M/mm3 (4.30-5.90); White Blood Cell Count 8.14 K/mm3 (4.00-11.30)
[2021-07-07 09:20] LABS: Source, Urine Catheter
[2021-07-07 09:32] LABS: Alanine Aminotransfer (ALT/SGP 34 U/L (12-78); Albumin, Blood 3.5 g/dL (3.4-5.0); Albumin/Globulin Ratio 0.9 (0.8-1.8); Alk Phos 67 U/L (50-136); Anion Gap 8 mmol/L (6-16); Aspartate Aminotrans (AST/SGOT 13 U/L (12-37); Bilirubin, Total 0.9 mg/dL (0.1-1.0); Blood Urea Nitrogen 19 mg/dL (8-24); CO2, Blood 25 mmol/L (21-32); Calcium, Blood 8.7 mg/dL (8.5-10.1); Chloride, Blood 104 mmol/L (98-108); Creatinine, Blood 0.87 mg/dL (0.60-1.20); Glomerular Filtration Rate >60 (60-); Glucose, Blood 120 mg/dL (70-99); Potassium, Blood 3.9 mmol/L (3.5-5.5); Sodium, Blood 137 mmol/L (136-145); Total Protein, Blood 7.5 g/dL (6.4-8.2)
[2021-07-07 10:02] LABS: Appearance, Urine Bloody (Clear); Blood, Urine 5+ (Neg); Color, Urine Brown (P-Yellow); Glucose Qualitative, Urine Neg (Neg); Ketones, Urine 1+ (Neg); Leukocyte Esterase, Urine 2+ (Neg); Nitrite, Urine Pos (Neg); Protein, Urine 4+ (Neg); Urobilinogen, Urine 1+ (Normal); pH, Urine 6.5 (5.0-8.0)
[2021-07-07 10:21] LABS: Red Blood Cells, Urine TNTC /hpf (0-2); Squamous Epithelial Cells Few /hpf (Few)
[2021-07-07 10:22] LABS: Bacteria Mod /hpf; Calcium Oxalate Crystals Few /hpf
[2021-07-07] MEDS ORDERED: CEPH500 PO (10:58)
== END 2021-07-07 13:38 | disposition home or self-care (01) ==
LOC: ER 07:55
PROVIDERS: Physician Assistant
DX: N39.0 Urinary tract infection, site not specified (principal); I10 Essential (primary) hypertension; E03.9 Hypothyroidism, unspecified; K21.9 Gastro-esophageal reflux disease without esophagitis; G35 Multiple sclerosis; Z20.822 Contact with and (suspected) exposure to COVID-19; Z79.82 Long term (current) use of aspirin; Z79.02 Long term (current) use of antithrombotics/antiplatelets; Z79.890 Hormone replacement therapy; Z88.5 Allergy status to narcotic agent; Z91.018 Allergy to other foods; Z96.0 Presence of urogenital implants
CPT/HCPCS: 36415; 80053; 81001; 85025; 87077; 87086; 87186; 96365; 99283-25; J0696

== ENCOUNTER 2022-01-26 20:50 | Emergency (ER) | payer OTHER ==
[~2022-01-26] VITALS: Ht 170.2 cm; Wt 106.6 kg
[2022-01-26 22:16] LABS: Source, Urine Suprapubic Cath
[2022-01-26 22:32] LABS: Appearance, Urine Cloudy (Clear); Bilirubin, Urine Neg (Neg); Blood, Urine 5+ (Neg); Color, Urine Brown (P-Yellow); Glucose Qualitative, Urine Neg (Neg); Ketones, Urine 1+ (Neg); Leukocyte Esterase, Urine 3+ (Neg); Nitrite, Urine Pos (Neg); Protein, Urine 3+ (Neg); Specific Gravity, Urine 1.025 (1.003-1.022); Urobilinogen, Urine NORM (Normal)
[2022-01-26 23:12] LABS: Bacteria Many /hpf; Red Blood Cells, Urine TNTC /hpf (0-2); Squamous Epithelial Cells Not Seen /hpf (Few); White Blood Cells, Urine 25-50 /hpf (0-5)
[2022-01-26] MEDS ORDERED: Cefpodoxime Pr100 MG PO (23:21)
== END 2022-01-27 | disposition home or self-care (01) ==
LOC: ER 20:50
PROVIDERS: Physician Assistant
DX: N39.0 Urinary tract infection, site not specified (principal); I10 Essential (primary) hypertension; I48.91 Unspecified atrial fibrillation; K21.9 Gastro-esophageal reflux disease without esophagitis; E03.9 Hypothyroidism, unspecified; Z79.82 Long term (current) use of aspirin; Z79.899 Other long term (current) drug therapy
CPT/HCPCS: 81001; 87077; 87086; 87186; 99283-25; A9270

== ENCOUNTER 2023-05-30 02:18 | Inpatient (IN) | payer OTHER ==
[2023-05-30] VITALS (42 sets, daily range): BP systolic 80–119; BP diastolic 35–99
[~2023-05-30] VITALS: Ht 170.2 cm; Wt 100.2 kg
[~2023-05-30 02:18] MED LIST changes: +Cefpodoxime Pr100 MG PO; +OXYC5 PO
[2023-05-30 02:32] LABS: BASOPHILS ABSOLUTE AUTO 0.07 K/mm3 (0.00-0.23); BASOPHILS PERCENT AUTO 1 % (0-2); EOSINOPHILS ABSOLUTE AUTO 0.17 K/mm3 (0.00-0.68); EOSINOPHILS PERCENT AUTO 1 % (0-6); Hematocrit 52.4 % (37.0-53.0); IMMATURE GRAN ABSOLUTE AUTO 0.58 K/mm3 (0.00-0.10); IMMATURE GRAN PERCENT AUTO 4 % (0-1); LYMPHOCYTES ABSOLUTE AUTO 2.44 K/mm3 (0.84-5.20); LYMPHOCYTES PERCENT AUTO 19 % (21-46); MONOCYTES ABSOLUTE AUTO 0.78 K/mm3 (0.16-1.47); MONOCYTES PERCENT AUTO 6 % (4-13); Mean Corpuscular HGB 29.4 pg (26.0-34.0); Mean Corpuscular HGB Conc 32.4 g/dL (31.5-36.5); Mean Corpuscular Volume 91 fL (80-100); Mean Platelet Volume 12.9 fL (9.1-12.4); NEUTROPHILS PERCENT AUTO 69 % (41-73); NRBC ABSOLUTE 0.04 K/mm3 (0.00-0.02); NRBC Auto 0.3 /100 WBC (0.0-0.2); Platelet Count 142 K/mm3 (150-400); RDW Coefficient Variation 14.4 % (11.7-14.2); RDW Standard Deviation 47.3 fL (35.1-46.3); Red Blood Cell Count 5.78 M/mm3 (4.30-5.90); White Blood Cell Count 13.14 K/mm3 (4.00-11.30)
[2023-05-30 02:40] LABS: Calcium, Ionized (POC) 1.21 mmol/L (1.10-1.46); Chloride (POC) 99 mmol/L (98-108); Creatinine (POC) 0.6 mg/dL (0.8-1.3); Glucose (ISTAT POC) 145 mg/dL (70-99); Hemoglobin (POC) 18.7 g/dL (13.5-17.5); Potassium (POC) 5.2 mmol/L (3.5-5.5); Sodium (POC) 133 mmol/L (135-148); Total CO2 (POC) 20 mmol/L (21-32)
[2023-05-30 02:56] LABS: Alanine Aminotransfer (ALT/SGP 126 U/L (12-78); Albumin, Blood 3.4 g/dL (3.4-5.0); Albumin/Globulin Ratio 0.9 (0.8-1.8); Alk Phos 111 U/L (50-136); Anion Gap 19 mmol/L (6-16); Aspartate Aminotrans (AST/SGOT 70 U/L (12-37); Bilirubin, Total 0.5 mg/dL (0.1-1.0); Blood Urea Nitrogen 13 mg/dL (8-24); Bun/Creatinine Ratio 18.8 (12.0-20.0); CO2, Blood 17 mmol/L (21-32); Calcium, Blood 9.4 mg/dL (8.5-10.1); Chloride, Blood 97 mmol/L (98-108); Creatinine, Blood 0.69 mg/dL (0.60-1.20); Ethanol (Alcohol), Blood, Med <3 mg/dL; Globulin, Blood 3.9 g/dL (2.2-4.0); Glomerular Filtration Rate 97 (60-); Glucose, Blood 149 mg/dL (70-99); Potassium, Blood 3.7 mmol/L (3.5-5.5); Sodium, Blood 133 mmol/L (136-145); Total Protein, Blood 7.3 g/dL (6.4-8.2)
[2023-05-30 03:05] LABS: pH Blood Venous 7.04 (7.34-7.37)
[2023-05-30 03:06] LABS: Base Excess Venous -14.7 mmol/L; Bicarbonate Venous 13.2 mmol/L (24.0-30.0); PCO2 Venous 59.9 mmHg (38-42)
[2023-05-30] MEDS ORDERED: Lyrica25 MG PO (04:10)
[2023-05-30] MEDS ORDERED: CIPR500 PO (04:10)
--- NOTE | 2023-05-30 07:23 | NUR ---
PT ARRIVED TO ICU AT 0455 NEURO: NOT RESPONSIVE TO PAIN, PUPILS NON-REACTIVE. NO COUGH, NO GAG. CARDIAC: SR 90'S. BP 105/69 (79), LEVOPHED AND VASOPRESSIN INFUSING RESP: 15L NRB, O2 SAT 94%, LUNGS COARSE, THICK PINK SECRETIONS FROM MOUTH AND NOSE, SUCTIONED NEEDED TO KEEP AIRWAY CLEAR. NPA IN LEFT NARE. GI: NPO, BS HYPOACTIVE, SMALL BM SMEAR UPON ARRIVAL. : SUPRAPUBIC STEEN IN PLACE UPON ARRIVAL TO HOSP. NOT CHANGED BY ED STAFF. NO URINE OUTPUT SINCE ARRIVAL. DAUGHTER REPORTS URINE OUTPUT YESTERDAY. SKIN: SEE PHOTOS OF BUTTOCK. SKIN FRAGILE. IV: PIV X3, ALL INFUSING. PSYCH: DAUGHTER ANJELICA AT BEDSIDE, DROVE FROM [place] THIS AM. DAUGHTER SKYLER IS POA AND SHE IS CURRENTLY IN [place] BUT AVAILABLE BY PHONE. REPORT GIVEN TO PIETRO MCKAY.
--- NOTE | 2023-05-30 08:10 | NUR ---
ASSUMED CARE / DR PAREKH: REPORT RECEIVED FROM JANEE Chery RN. ASSUMED CARE OF THIS PT AT APPROX 0700. ON ASSESSMENT, THE PT IS UNRESPONSIVE. HE DOES NOT OPEN HIS EYES OR MAKE ANY NOTABLE SPONTANEOUS MOVEMENTS. NO GAG NOTED. PUPILS SMALL, MINIMALLY RESPONSIVE TO LIGHT. LS COARSE T/O, PT ON 15L NRB W/ O2 SATS 90-93%. MONITOR SHOWS SR-ST W/ HR 90-100s, HYPOTENSIVE W/ LEVOPHED INFUSING - SEE FLOWSHEET. PT NPO R/T MENTATION. ABD SOFT/ ROUND, NO GRIMACE NOTED TO PALPATION. CHRONIC SUPRAPUBIC STEEN IN PLACE DRAINING SCANT AMNTS YELLOW URINE. SKIN CONDITION OVERALL FRAGILE, NUMEROUS AREAS OF ECCHYMOSIS & SCABBING NOTED TO BUE. REDDENEED AREA NOTED TO COCCYX/ BUTTOCKS W/ ONE AREA THAT FAMILY STS IS "AN OLD SORE" THAT HAS HEALED PRIOR. THERE IS ALSO DEEP TISSUE BRUISING & ANOTHER OPEN AREA WELL. NOT BLANCHABLE. Q2H REPOSITIONING TO MAINTAIN SKIN INTEGRITY. DR PAREKH AT BEDSIDE THIS AM. DISCUSSED NEED FOR GOALS OF CARE TO BE FURTHER DISCUSSED W/ PT's DAUGHTER, ANJELICA, AT BEDSIDE. THE PT's OTHER DAUGHTER, SKYLER, IS HIS MEDICAL POA & RESPONSIBLE FOR MAKING ALL DECISIONS FOR THE PT. WILL CONTINUE TO MONITOR & UPDATE NEEDED.
[2023-05-30 08:25] LABS: Source, Urine Straight Cath
[2023-05-30 08:34] LABS: Appearance, Urine Hazy (Clear); Bilirubin, Urine Neg (Neg); Blood, Urine 4+ (Neg); Color, Urine Yellow (P-Yellow); Glucose Qualitative, Urine Neg (Neg); Ketones, Urine 1+ (Neg); Leukocyte Esterase, Urine 3+ (Neg); Nitrite, Urine Pos (Neg); Protein, Urine 4+ (Neg); Specific Gravity, Urine 1.025 (1.003-1.022); Urobilinogen, Urine NORM (Normal)
[2023-05-30 08:46] LABS: U Amphetamine Screen Not Detected; U Barbituate Screen Not Detected; U Benzodiazapine Screen DETECTED; U Buprenorphine Screen Not Detected; U Cannabinoids Screen Not Detected; U Cocaine Screen Not Detected; U Methadone Screen Not Detected; U Methamphetamine Screen Not Detected; U Opiates Screen Not Detected; U Oxycodone Screen Not Detected; U Phencyclidine Screen Not Detected; U Propoxyphene Screen Not Detected
[2023-05-30 08:49] LABS: Bacteria Few /hpf; Mucus Light (0-Heavy); Squamous Epithelial Cells Not Seen /hpf (Few)
[2023-05-30 08:50] LABS: Amorphous Light (0-Heavy)
--- NOTE | 2023-05-30 16:00 | NUR ---
COMFORT MEASURES / SHIFT SUMMARY: THE PT CONTINUES TO REQUIRE HIGH VASOPRESSORS & IS RECEIVING MEDICATION PERIPHERALLY. DISCUSSION HAS BEEN HAD W/ THE PT's TWO DAUGHTERS; ANJELICA AT BEDSIDE & SKYLER VIA PHONE CALL, TO DETERMINE ULTIMATE GOALS OF CARE FOR THIS PT. IF VASOPRESSORS ARE TO BE CONTINUED, THE PT WILL NEED CENTRAL ACCESS. THE PT's DAUGHTERS HAVE DECIDED THAT THEY WOULD LIKE TO FOCUS ON COMFORT AT THIS TIME. MICHAELA Baez PALLIATIVE RN, AT BEDSIDE DURING THIS CONVERSATION & HAS DISCUSSED THE PROGRESSION OF COMFORT MEASURES ONLY. DR SATNANA AT BEDSIDE DURING THIS TIME. ORDERS PLACED & THIS RN HAS DISCONTINUED ALL VASOPRESSORS & UNNECESSARY INTERVENTIONS AT APPROX 1545. MICHAELA HAS PROVIDED SUPPORTIVE CARE FOR ANJELICA WHO REMAINS AT BEDSIDE. NO OTHER CHANGES AT THIS TIME.
--- NOTE | 2023-05-30 16:48 | NUR ---
Pt's daughter Tre at the bedside. She and her sister elected for comfort care for their father the patient. IV fluids, pressers were stopped, pt made comfort care. Dr. Leigh was present for the decision, and orders were placed. Pt does not appear uncomfortable at this time. Comfort care orders in place.
--- NOTE | 2023-05-30 18:50 | NUR ---
TRANSFER TO MEDICAL FLOOR: REPORT HAS BEEN GIVEN TO PANCHITO Duffy RN TO ASSUME CARE. THE PT HAS BEEN TAKEN TO ROOM 357 VIA BED AT APPROX 1845. CHART & ALL BELONGINGS HAVE BEEN TAKEN UP W/ PT AT THAT TIME. DAUGHTER, ANJELICA, & PT's FRIEND, AT BEDSIDE DURING THIS TIME & HAVE MOVED TO NEW ROOM W/ PT.
--- NOTE | 2023-05-30 23:52 | NUR ---
COMFORT CARE PT IS UNRESPONSIVE TO STIMULI. DEEP LABORED BREATHING. GRIMMACING. PT DAUGHTER AT BEDSIDE. PER DAUGHTER, PT HAS HAD BREATHING ISSUES FOR MANY YEARS. ON FIRST ASSESSMENT PT DEEP LABORED BREATING TREATED PER EMAR
--- NOTE | 2023-05-31 03:26 | NUR ---
LATE ENTRY-1120 PT SHOWING SIGNS OF AIR HUNGER. TREATED PER EMAR.
--- NOTE | 2023-05-31 03:28 | NUR ---
LATE ENTRY- PT 9447 05/30/23. 2ND RN VERIFIED. DAUGHTER AT BEDSIDE. LEFT WITH BELONGINGS. MD NOTIFIED.
== END 2023-05-30 23:59 | DRG 698 ==
LOC: ER 02:18 → ICUE 04:37 → MEDS 18:40
PROVIDERS: Emergency Medicine; ADMIT Internal Medicine
PROC: 3E03329 Introduction of Other Anti-infective into Peripheral Vein, Percutaneous Approach (ICD-10-PCS; principal; 2023-05-30)
PROC: 3E033XZ Introduction of Vasopressor into Peripheral Vein, Percutaneous Approach (ICD-10-PCS; 2023-05-30)
PROC: 5A09357 Assistance with Respiratory Ventilation, Less than 24 Consecutive Hours, Continuous Positive Airway Pressure (ICD-10-PCS; 2023-05-30)
DX: T83.511A Infection and inflammatory reaction due to indwelling urethral catheter, initial encounter (principal); A41.50 Gram-negative sepsis, unspecified; R65.21 Severe sepsis with septic shock; E72.20 Disorder of urea cycle metabolism, unspecified; E87.1 Hypo-osmolality and hyponatremia; N39.0 Urinary tract infection, site not specified; Z66 Do not resuscitate; Z51.5 Encounter for palliative care; R74.01 Elevation of levels of liver transaminase levels; E87.8 Other disorders of electrolyte and fluid balance, not elsewhere classified; D69.6 Thrombocytopenia, unspecified; R90.82 White matter disease, unspecified; I10 Essential (primary) hypertension; N31.9 Neuromuscular dysfunction of bladder, unspecified; E78.5 Hyperlipidemia, unspecified; G35 Multiple sclerosis; L89.152 Pressure ulcer of sacral region, stage 2; F32.A Depression, unspecified; I48.91 Unspecified atrial fibrillation; K21.9 Gastro-esophageal reflux disease without esophagitis; G40.901 Epilepsy, unspecified, not intractable, with status epilepticus; B96.1 Klebsiella pneumoniae [K. pneumoniae] as the cause of diseases classified elsewhere; E03.9 Hypothyroidism, unspecified; M19.90 Unspecified osteoarthritis, unspecified site; Z98.890 Other specified postprocedural states; Z88.5 Allergy status to narcotic agent; Z91.018 Allergy to other foods; Z88.8 Allergy status to other drugs, medicaments and biological substances; Z79.899 Other long term (current) drug therapy; Z79.890 Hormone replacement therapy; Z79.02 Long term (current) use of antithrombotics/antiplatelets; Z93.1 Gastrostomy status
CPT/HCPCS: 36415; 70450; 71045; 80047; 80053; 81001; 82140; 82803; 83605; 84145; 85014; 85025; 87040; 87086; 93005; 93010; 96365; 96367; 96368; 96372-59; 96375; 99291-25; A9270; G0480; J0696; J1170; J1650; J1720; J1953; J2060; J2185; J3370; J7030; J7050; J7060